=== PATIENT | male | born 1950 | race Caucasian/White ===

== ENCOUNTER → 2017-01-12 | Outpatient (CLI) | payer MEDICARE, OTHER ==
[~2017-01-12] MED LIST: GABA-529 PO; VICOT PO
== END | disposition home or self-care (01) ==
LOC: LABPV 12:40
PROVIDERS: ATTEND Physical Medicine & Rehabilitation
DX: F11.20 Opioid dependence, uncomplicated (principal)
CPT/HCPCS: 80307

== ENCOUNTER 2017-09-08 17:05 | Inpatient (IN) | payer MEDICARE, OTHER ==
[~2017-09-08] VITALS: Ht 182.9 cm; Wt 63.0 kg
[~2017-09-08 17:05] MED LIST changes: +ACET-2247 PO; +AMLO-511 PO; +ASPI81 PO; +ATOR40TA28 PO; +AUD NEB; +BISA10S PR; +CARV6 PO; +DSS100 PO; +DULO20CA30 PO; +EPOE10I SQ; +FOLI0.8T22 PO; +FOLI1CAP2 PO; +HYDR-2924 PO; +HYDR-4061 PO; +IPRNEB IH; +LACT30L PO; +METO25XL PO; +MOM30 PO; +PANT40TA25 PO; +SEVEC800 PO; +VALS160T2 PO; -VICOT PO
[2017-09-08] MEDS ORDERED: IPRATROPIUM BROMIDE 0.5 MG/2.5 ML NEB SOLUTION NEB PRN (18:00)
[2017-09-08] MEDS ORDERED: BISACODYL 10 MG RECTAL RECTAL SUPPOSITORY PR PRN (18:00)
[2017-09-08] MEDS ORDERED: DOCUSATE SODIUM 283 MG/5 ML MINI-ENEMA PR PRN (18:00)
[2017-09-08] MEDS ORDERED: ALBUTEROL SULFATE 2.5 MG/0.5 ML NEB SOLUTION NEB PRN (18:00)
[2017-09-08 18:32] VITALS: BP 142/62
[2017-09-08 20:20] VITALS: BP 123/57
[2017-09-08] MEDS: ATORVASTATIN CALCIUM 40 MG TABLET PO SCH (20:25)
[2017-09-08] MEDS: DOCUSATE SODIUM 100 MG CAPSULE PO SCH (20:25)
[2017-09-08] MEDS: AmLODIPine BESYLATE 5 MG TABLET PO SCH (20:25)
[2017-09-08] MEDS: HydrALAZINE HCL 50 MG TABLET PO SCH (20:33)
[2017-09-08] MEDS: CARVEDILOL 6.25 MG TABLET PO SCH (20:33)
[2017-09-08] MEDS ORDERED: SENNA 187 MG TABLET PO SCH (21:00)
[2017-09-08 23:39] VITALS: BP 145/84
[2017-09-09] MEDS: HYDROCODONE/ACETAMINOPHEN 5-325 MG TABLET PO PRN ×2 (00:26→12:36)
[2017-09-09 07:40] LABS: BASOPHILS % (AUTO) 1.5 % (0.0-2.0); EOSINOPHILS % (AUTO) 3.4 % (1.0-6.0); HEMATOCRIT 30.3 % (41-53); HEMOGLOBIN 10.3 g/dL (13.5-17.5); LYMPHOCYTES # (AUTO) 1.1 K/uL (1.0-4.8); LYMPHOCYTES % (AUTO) 19.8 % (22.0-44.0); MEAN CORPUSCULAR HEMOGLOBIN 35.6 pg (26.0-34.0); MEAN CORPUSCULAR HGB CONC 33.9 G/dL (31.0-37.0); MEAN CORPUSCULAR VOLUME 105 fL (80-100); MONOCYTES # (AUTO) 0.6 K/uL (0.1-1.0); MONOCYTES % (AUTO) 10.2 % (2.0-9.0); NEUTROPHILS # (AUTO) 3.8 K/uL (1.8-7.7); NEUTROPHILS % (AUTO) 65.1 % (40.0-70.0); PLATELET COUNT (AUTO) 124 K/uL (150-450); RED BLOOD CELL COUNT(AUTO) 2.89 MIL/uL (4.50-5.90)
[2017-09-09 07:55] LABS: ALBUMIN 3.4 g/dL (3.4-5.0); BILIRUBIN,TOTAL 0.5 mg/dL (0.1-1.0); CALCIUM, TOTAL 9.1 mg/dL (8.8-10.5); CREATININE 5.42 mg/dL (0.60-1.30); POTASSIUM 4.5 mmol/L (3.5-5.1); TOTAL PROTEIN, SERUM 7.5 g/dL (6.4-8.2)
[2017-09-09 08:00] VITALS: BP 162/85
[2017-09-09] MEDS: HydrALAZINE HCL 50 MG TABLET PO SCH ×4 (09:00→20:32)
[2017-09-09 09:15] VITALS: BP 106/74
[2017-09-09] MEDS: EPOETIN ALFA 10,000 UNITS/ML VIAL SQ SCH (09:21)
[2017-09-09] MEDS: 0.9% SODIUM CHLORIDE 10 ML SYRINGE IVP SCH ×2 (09:21→16:13)
[2017-09-09] MEDS: ASPIRIN 81 MG CHEWABLE TABLET PO SCH (09:22)
[2017-09-09] MEDS: VALSARTAN 160 MG TABLET PO SCH (09:22)
[2017-09-09] MEDS: AmLODIPine BESYLATE 5 MG TABLET PO SCH ×2 (09:23→20:32)
[2017-09-09] MEDS: VITAMIN B COMP/VIT C/FOLIC ACID CAPSULE PO SCH (09:23)
[2017-09-09] MEDS: DOCUSATE SODIUM 100 MG CAPSULE PO SCH ×2 (09:23→20:32)
[2017-09-09] MEDS: CARVEDILOL 6.25 MG TABLET PO SCH ×2 (09:23→20:32)
[2017-09-09] MEDS: PANTOPRAZOLE SODIUM 40 MG DR TABLET PO SCH (09:23)
[2017-09-09 15:08] VITALS: BP 147/75
[2017-09-09 15:10] VITALS: BP 161/67
[2017-09-09] MEDS: LORazepam 2 MG/ML VIAL IM PRN (16:13)
[2017-09-09 20:30] VITALS: BP 160/71
[2017-09-09] MEDS: QUEtiapine FUMARATE 25 MG TABLET PO SCH (20:31)
[2017-09-09] MEDS: MAGNESIUM HYDROXIDE SUSPENSION 30 ML UDCUP PO PRN (20:31)
[2017-09-09] MEDS: ATORVASTATIN CALCIUM 40 MG TABLET PO SCH (20:32)
[2017-09-09] MEDS: SENNA 187 MG TABLET PO SCH (20:32)
[2017-09-09 22:15] VITALS: BP 161/69
[2017-09-10] VITALS (8 sets, daily range): BP systolic 122–161; BP diastolic 53–74
[2017-09-10] MEDS: LORazepam 2 MG/ML VIAL IM PRN ×3 (01:30→14:24)
[2017-09-10] MEDS ORDERED: SODIUM CHLORIDE 0.9% 1,000 ML IV ONE ×2 (06:52)
[2017-09-10] MEDS: VALSARTAN 160 MG TABLET PO SCH ×2 (09:00→14:03)
[2017-09-10] MEDS: CARVEDILOL 6.25 MG TABLET PO SCH ×2 (09:00→20:14)
[2017-09-10] MEDS: AmLODIPine BESYLATE 5 MG TABLET PO SCH ×2 (09:00→20:14)
[2017-09-10] MEDS: PANTOPRAZOLE SODIUM 40 MG DR TABLET PO SCH (09:00)
[2017-09-10] MEDS: HydrALAZINE HCL 50 MG TABLET PO SCH ×3 (09:00→20:15)
[2017-09-10] MEDS: DOCUSATE SODIUM 100 MG CAPSULE PO SCH ×2 (09:00→20:13)
[2017-09-10] MEDS: ASPIRIN 81 MG CHEWABLE TABLET PO SCH (14:02)
[2017-09-10] MEDS: QUEtiapine FUMARATE 25 MG TABLET PO SCH ×2 (14:02→20:14)
[2017-09-10] MEDS: VITAMIN B COMP/VIT C/FOLIC ACID CAPSULE PO SCH (14:03)
[2017-09-10] MEDS: TraZODone HCL 50 MG TABLET PO PRN (20:13)
[2017-09-10] MEDS: MAGNESIUM HYDROXIDE SUSPENSION 30 ML UDCUP PO PRN (20:13)
[2017-09-10] MEDS: SENNA 187 MG TABLET PO SCH (20:14)
[2017-09-10] MEDS: ATORVASTATIN CALCIUM 40 MG TABLET PO SCH (20:14)
[2017-09-10] MEDS ORDERED: LACTULOSE 20 GM/30 ML SOLUTION UDCUP PO PRN (20:30)
[2017-09-10] MEDS ORDERED: DOCUSATE SODIUM 100 MG CAPSULE PO SCH (21:00)
[2017-09-11 02:12] VITALS: BP 132/74
[2017-09-11] MEDS: HYDROCODONE/ACETAMINOPHEN 5-325 MG TABLET PO PRN ×4 (02:51→23:37)
[2017-09-11 07:55] VITALS: BP 96/54
[2017-09-11] MEDS: ASPIRIN 81 MG CHEWABLE TABLET PO SCH (08:03)
[2017-09-11] MEDS: QUEtiapine FUMARATE 25 MG TABLET PO SCH ×2 (08:03→20:56)
[2017-09-11] MEDS: PANTOPRAZOLE SODIUM 40 MG DR TABLET PO SCH (08:04)
[2017-09-11] MEDS: VITAMIN B COMP/VIT C/FOLIC ACID CAPSULE PO SCH (08:04)
[2017-09-11] MEDS: AmLODIPine BESYLATE 5 MG TABLET PO SCH ×2 (09:00→20:56)
[2017-09-11] MEDS: HydrALAZINE HCL 50 MG TABLET PO SCH (09:00)
[2017-09-11] MEDS: VALSARTAN 160 MG TABLET PO SCH (09:00)
[2017-09-11] MEDS: CARVEDILOL 6.25 MG TABLET PO SCH ×2 (09:00→20:56)
[2017-09-11] MEDS: DOCUSATE SODIUM 250 MG CAPSULE PO SCH ×2 (11:25→20:56)
[2017-09-11 16:39] VITALS: BP 118/51
[2017-09-11] MEDS: ATORVASTATIN CALCIUM 40 MG TABLET PO SCH (20:55)
[2017-09-11] MEDS: RisperiDONE 0.5 MG TABLET PO SCH (20:55)
[2017-09-11] MEDS: SENNA 187 MG TABLET PO SCH (20:56)
[2017-09-11 21:01] VITALS: BP_SYST 113; BP_DIAS 45; BP_DIAS 65
[2017-09-11] MEDS: TraZODone HCL 50 MG TABLET PO PRN (23:15)
[2017-09-11 23:37] VITALS: BP 107/54
[2017-09-12 00:09] VITALS: BP 107/54
[2017-09-12] MEDS: ACETAMINOPHEN 325 MG TABLET PO PRN (04:38)
[2017-09-12 07:12] VITALS: BP 107/53
[2017-09-12] MEDS: QUEtiapine FUMARATE 25 MG TABLET PO SCH (08:08)
[2017-09-12] MEDS: EPOETIN ALFA 10,000 UNITS/ML VIAL SQ SCH (08:08)
[2017-09-12] MEDS: CARVEDILOL 6.25 MG TABLET PO SCH ×2 (08:08→21:00)
[2017-09-12] MEDS: VALSARTAN 160 MG TABLET PO SCH (08:08)
[2017-09-12] MEDS: VITAMIN B COMP/VIT C/FOLIC ACID CAPSULE PO SCH (08:08)
[2017-09-12] MEDS: RisperiDONE 0.5 MG TABLET PO SCH ×2 (08:08→20:18)
[2017-09-12] MEDS: ASPIRIN 81 MG CHEWABLE TABLET PO SCH (08:08)
[2017-09-12] MEDS: DOCUSATE SODIUM 250 MG CAPSULE PO SCH ×2 (08:08→20:16)
[2017-09-12] MEDS: PANTOPRAZOLE SODIUM 40 MG DR TABLET PO SCH (08:08)
[2017-09-12] MEDS: ESCITALOPRAM OXALATE 10 MG TABLET PO SCH (08:08)
[2017-09-12] MEDS: AmLODIPine BESYLATE 5 MG TABLET PO SCH ×2 (08:09→21:00)
[2017-09-12 09:08] VITALS: BP 107/53
[2017-09-12 15:08] VITALS: BP 113/66
[2017-09-12 20:15] VITALS: BP 90/67
[2017-09-12] MEDS: SENNA 187 MG TABLET PO SCH (20:17)
[2017-09-12] MEDS: ATORVASTATIN CALCIUM 40 MG TABLET PO SCH (20:17)
[2017-09-12] MEDS: LORazepam 2 MG/ML VIAL IM PRN (21:49)
[2017-09-12] MEDS: HYDROCODONE/ACETAMINOPHEN 5-325 MG TABLET PO PRN (21:53)
[2017-09-12 22:45] VITALS: BP 90/58
[2017-09-12] MEDS: TraZODone HCL 50 MG TABLET PO PRN (23:13)
[2017-09-13] MEDS: ACETAMINOPHEN 325 MG TABLET PO PRN (02:55)
[2017-09-13 05:25] VITALS: BP 125/51
[2017-09-13 07:19] VITALS: BP 133/83
[2017-09-13] MEDS: CARVEDILOL 6.25 MG TABLET PO SCH (08:47)
[2017-09-13] MEDS: ASPIRIN 81 MG CHEWABLE TABLET PO SCH ×2 (08:47→09:00)
[2017-09-13] MEDS: PANTOPRAZOLE SODIUM 40 MG DR TABLET PO SCH ×2 (08:47→09:00)
[2017-09-13] MEDS: DOCUSATE SODIUM 250 MG CAPSULE PO SCH ×2 (08:47→09:00)
[2017-09-13] MEDS: ESCITALOPRAM OXALATE 10 MG TABLET PO SCH ×2 (08:47→09:00)
[2017-09-13] MEDS: VALSARTAN 160 MG TABLET PO SCH (08:47)
[2017-09-13] MEDS: VITAMIN B COMP/VIT C/FOLIC ACID CAPSULE PO SCH ×2 (08:47→09:00)
[2017-09-13] MEDS: RisperiDONE 0.5 MG TABLET PO SCH ×2 (08:47→09:00)
[2017-09-13] MEDS: AmLODIPine BESYLATE 5 MG TABLET PO SCH (08:48)
[2017-09-13] MEDS: LORazepam 2 MG/ML VIAL IM PRN (11:02)
[2017-09-13 16:00] VITALS: BP 124/60
[2017-09-13 17:44] VITALS: BP_SYST 124
== END 2017-09-13 16:40 | DRG 91 ==
LOC: 2WR 17:05
PROVIDERS: ADMIT Physical Medicine & Rehabilitation; ATTEND Physical Medicine & Rehabilitation
PROC: 5A1D70Z Performance of Urinary Filtration, Intermittent, Less than 6 Hours Per Day (ICD-10-PCS; principal; 2017-09-10)
DX: G93.1 Anoxic brain damage, not elsewhere classified (principal); I46.9 Cardiac arrest, cause unspecified; N17.9 Acute kidney failure, unspecified; N18.6 End stage renal disease; I12.0 Hypertensive chronic kidney disease with stage 5 chronic kidney disease or end stage renal disease; G62.9 Polyneuropathy, unspecified; Z78.1 Physical restraint status; D64.9 Anemia, unspecified; E87.6 Hypokalemia; F41.9 Anxiety disorder, unspecified; G89.29 Other chronic pain; F43.23 Adjustment disorder with mixed anxiety and depressed mood; Z99.2 Dependence on renal dialysis; Z95.810 Presence of automatic (implantable) cardiac defibrillator; Z79.899 Other long term (current) drug therapy; Z91.81 History of falling; Z91.19 Patient's noncompliance with other medical treatment and regimen
CPT/HCPCS: 87081; 90935; 92507; 92523; 97110; 97112; 97116; 97162; 97167; 97530; 97535; J0885; J2060; J7030

== ENCOUNTER → 2017-11-09 | Outpatient (CLI) | payer MEDICARE, OTHER ==
[~2017-11-09] VITALS: Ht 182.9 cm; Wt 81.0 kg
[~2017-11-09] MED LIST changes: +CLON-570 PO; -DULO20CA30 PO; +ESCI10TA PO; -FOLI0.8T22 PO; -GABA-529 PO; +HYDR10TA31 PO; -LACT30L PO; +LORA0.5T2 PO; +MELA1TAB8 PO; -METO25XL PO; -SEVEC800 PO
[2017-11-09 11:40] VITALS: BP 160/70
== END | disposition home or self-care (01) ==
LOC: SRCNTR 11:39
PROVIDERS: ATTEND Internal Medicine Cardiovascular Disease
DX: I13.2 Hypertensive heart and chronic kidney disease with heart failure and with stage 5 chronic kidney disease, or end stage renal disease (principal); N18.6 End stage renal disease; I50.9 Heart failure, unspecified; I46.9 Cardiac arrest, cause unspecified; I25.10 Atherosclerotic heart disease of native coronary artery without angina pectoris; E78.5 Hyperlipidemia, unspecified; F17.210 Nicotine dependence, cigarettes, uncomplicated; Z95.810 Presence of automatic (implantable) cardiac defibrillator; Z99.2 Dependence on renal dialysis
CPT/HCPCS: 93005; G0463